=== PATIENT | male | born 1950 | race Caucasian/White ===

== ENCOUNTER 2019-02-02 08:58 | Emergency (ER) | payer BC, MEDICARE ==
[2019-02-02 09:05] VITALS: BP 143/75
[2019-02-02] MEDS ORDERED: OXYMETAZOLINE HCL 0.05% NASAL SPRAY 15 ML BOTTLE NASL ONE (09:44)
--- NOTE | 2019-02-02 09:46 | ER Document Report ---
ED Medical Screen (RME) - General Chief Complaint: Nose Bleed Stated Complaint: NOSE BLEED Time Seen by Provider: 02/02/19 09:37 Primary Care Provider: ROLAND COON [Primary Care Provider] - Follow up as needed Information source: Patient, Relative Notes: Patient presents with nosebleed that started at 7 AM this morning. Patient denies any trauma to the nose. Patient reports having a lot of blood on at home on his pillow. Patient has a history of hypertension CVA and does take Xarelto. Patient reports occasional bruising but no other abnormal bleeding. I have greeted and performed a rapid initial assessment of this patient. A comprehensive ED assessment and evaluation of the patient, analysis of test results and completion of the medical decision making process will be conducted by additional ED providers. 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 Denies: Hx Seizures GI Medical History: Denies: Hx Hepatitis, Hx Hiatal Hernia, Hx Ulcer Musculoskeltal Medical History: Denies Hx Arthritis Infectious Medical History: Denies: Hx Hepatitis Past Surgical History: Denies: Hx Open Heart Surgery, Hx Pacemaker - Immunizations Hx Diphtheria, Pertussis, Tetanus Vaccination: No Physical Exam - Vital signs Vitals: Temp Pulse Resp BP Pulse Ox 97.5 F 86 20 143/75 H 96 02/02/19 09:03 02/02/19 09:03 02/02/19 09:03 02/02/19 09:03 02/02/19 09:03 - General Notes: No active bleeding from nose, patient with some blood in the posterior pharynx Course - Vital Signs Vital signs: Temp Pulse Resp BP Pulse Ox 97.5 F 86 20 143/75 H 96 02/02/19 09:03 02/02/19 09:03 02/02/19 09:03 02/02/19 09:03 02/02/19 09:03 Doctor's Discharge - Discharge Referrals: ROLAND COON [Primary Care Provider] - Follow up as needed
[2019-02-02] MEDS ORDERED: LIDOCAINE 1%/EPINEPHRINE INJ 20 ML VIAL INJ ONE (10:05)
--- NOTE | 2019-02-04 10:36 | ER Document Report ---
Entered by JOANNE MORALES SCRIBE 02/02/19 1112 Acting as scribe for:RONDA CLARK MD ED General - General Chief Complaint: Nose Bleed Stated Complaint: NOSE BLEED Time Seen by Provider: 02/02/19 09:37 Primary Care Provider: SOPHY BOSCH MD [Primary Care Provider] - Follow up as needed Notes: Patient is a 68-year-old male presenting to the emergency department with a bloody nose. Patient states that it began this morning when he was trying to get some sleep. Patient states that he tried applying pressure, wiping the blood, with no relief. Patient has a history of stroke, he is taking the Xarelto at this time. Patient denies being on CPAP, or any breathing treatment at home, experiencing chest pain, or dizziness. - Related Data Allergies/Adverse Reactions: No Known Allergies Allergy (Verified 02/02/19 09:00) Past Medical History - General Information source: Patient, Relative - Social History Smoking Status: Current Some Day Smoker Cigarette use (# per day): Yes Chew tobacco use (# tins/day): No Frequency of alcohol use: Social Drug Abuse: None Family History: Reviewed & Not Pertinent Patient has suicidal ideation: No Patient has homicidal ideation: No - Past Medical History Cardiac Medical History: Reports: Hx Hypertension - MEDICATION Neurological Medical History: Reports: Hx Cerebrovascular Accident - RIDE SIDE /2012 - Immunizations Hx Diphtheria, Pertussis, Tetanus Vaccination: No Review of Systems - Review of Systems Constitutional: No symptoms reported EENT: See HPI, Nose discharge - Epistaxis Cardiovascular: No symptoms reported. denies: Chest pain, Dizziness Respiratory: No symptoms reported Gastrointestinal: No symptoms reported Genitourinary: No symptoms reported Male Genitourinary: No symptoms reported Musculoskeletal: No symptoms reported Skin: No symptoms reported Hematologic/Lymphatic: No symptoms reported Neurological/Psychological: No symptoms reported Physical Exam - Vital signs Vitals: Temp Pulse Resp BP Pulse Ox 97.5 F 86 20 143/75 H 96 02/02/19 09:03 02/02/19 09:03 02/02/19 09:03 02/02/19 09:03 02/02/19 09:03 - Notes Notes: Physical Exam: General: Alert, appears well. HEENT: Blood present in nares bilaterally. Atraumatic. PERRL. Extraocular movements intact. Oropharynx clear. Neck: Supple. Non-tender. Respiratory: No respiratory distress. Clear and equal breath sounds bilaterally. Cardiovascular: Regular rate and rhythm. Abdominal: Normal Inspection. Non-tender. No distension. Normal Bowel Sounds. Back: Non-tender. No deformity or step off. Extremities: Moves all four extremities. Upper extremities: Normal inspection. Normal ROM. Lower extremities: Normal inspection. No edema. Normal ROM. Neurological: Normal cognition. AAOx4. Normal speech. Psychological: Normal affect. Normal Mood. Skin: Warm. Dry. Normal color. Course - Re-evaluation Re-evalutation: 02/02/19 11:12 Patient knows no active bleeding during entire stay in the emergency department. Nasal speculum revealed no significant excoriations for cauterization at this time although there is a small excoriation medial aspect of right nares. Discussed with patient need to spray Afrin in his nose for an each nostril and then place gauze provided in clamp nose for 20 minutes if this recurs. Also discussed using saline mist 3 times a day [id number] from any pharmacy. Return precautions provided regarding continuation of epistaxis - Vital Signs Vital signs: Temp Pulse Resp BP Pulse Ox 97.5 F 86 20 143/75 H 96 02/02/19 09:03 02/02/19 09:03 02/02/19 09:03 02/02/19 09:03 02/02/19 09:03 Discharge - Discharge Clinical Impression: Epistaxis Condition: Good Disposition: HOME, SELF-CARE Additional Instructions: Please place 4 squirts of Afrin each nares and then placed nasal packing provided and clamp nose for 20 minutes if bleeding continues please return to the emergency department Please purchase nasal in place 2-3 squirts in each nostril 3 times daily Referrals: SOPHY BOSCH MD [Primary Care Provider] - Follow up as needed I personally performed the services described in the documentation, reviewed and edited the documentation which was dictated to the scribe in my presence, and it accurately records my words and actions.
== END 2019-02-02 11:30 | disposition home or self-care (01) ==
LOC: ER 08:58
DX: R04.0 Epistaxis (principal); F17.210 Nicotine dependence, cigarettes, uncomplicated; I69.351 Hemiplegia and hemiparesis following cerebral infarction affecting right dominant side; Z79.01 Long term (current) use of anticoagulants
CPT/HCPCS: 99283; J3490 ×2

== ENCOUNTER 2019-02-19 21:08 | Emergency (ER) | payer BC, MEDICARE ==
--- NOTE | 2019-02-19 21:14 | ER Document Report ---
ED General - General Stated Complaint: NOSE BLEED Time Seen by Provider: 02/19/19 21:14 Primary Care Provider: SOPHY BOSCH MD [Primary Care Provider] - Follow up as needed Mode of Arrival: Medic Information source: Patient Notes: Patient is a 5-year-old male being brought into the emergency department via EMS after falling. Patient reports he felt very dizzy and then fell striking his head onto pavement. He denies any loss of consciousness. He does report he takes Eliquis. He states he also immediately got a nosebleed. Patient does report a history of nosebleeds, states he was here a few weeks ago for one. He also reports a history of hypertension, seizures, atrial fibrillation. He reports he drinks daily. He denies any recent illness, states he has been feeling well prior to today. He denies any nausea, vomiting, diarrhea, fevers or chills. 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 Denies: Hx Seizures Renal/ Medical History: Denies: Hx Peritoneal Dialysis GI Medical History: Denies: Hx Hepatitis, Hx Hiatal Hernia, Hx Ulcer Musculoskeletal Medical History: Denies Hx Arthritis Infectious Medical History: Denies: Hx Hepatitis Past Surgical History: Denies: Hx Open Heart Surgery, Hx Pacemaker - Immunizations Hx Diphtheria, Pertussis, Tetanus Vaccination: No Review of Systems - Review of Systems Constitutional: No symptoms reported EENT: Other - Epistaxis Cardiovascular: Dizziness Respiratory: No symptoms reported Gastrointestinal: No symptoms reported Genitourinary: No symptoms reported Male Genitourinary: No symptoms reported Musculoskeletal: No symptoms reported Skin: No symptoms reported Hematologic/Lymphatic: No symptoms reported Neurological/Psychological: No symptoms reported Physical Exam - Vital signs Vitals: Temp Pulse Resp BP Pulse Ox 97.7 F 102 H 20 151/79 H 98 02/19/19 21:08 02/19/19 21:08 02/19/19 21:08 02/19/19 21:08 02/19/19 21:08 - Notes Notes: PHYSICAL EXAMINATION: GENERAL: Moderately ill appearing, unkempt alert, answering all questions. HEAD: Atraumatic, normocephalic. EYES: Pupils equal round and reactive to light, extraocular movements intact, sclera anicteric, conjunctiva are normal. ENT: Nares patent, oropharynx clear without exudates. Moist mucous membranes. No evidence of current epistaxis, dried blood noted in both nares. NECK: Normal range of motion, supple without lymphadenopathy LUNGS: Breath sounds clear to auscultation bilaterally and equal. No wheezes rales or rhonchi. HEART: Regular rate and rhythm without murmurs ABDOMEN: Soft, nontender, nondistended abdomen. No guarding, no rebound. No masses appreciated. Musculoskeletal: Normal range of motion, no pitting or edema. No cyanosis. NEUROLOGICAL: Cranial nerves grossly intact. Normal sensory, motor exams PSYCH: Normal mood, normal affect. SKIN: Warm, Dry, pale, normal turgor, no rashes or lesions noted. Course - Re-evaluation Re-evalutation: Nursing staff made me aware of a magnesium level of 0.7. Orders placed for magnesium replacement. 02/19/19 23:08 Patient had moderate amount of bloody emesis, likely secondary to resolved epistaxis. Attending physician Dr. Rico did come to the bedside to evaluate the patient. Patient is awake, alert, answering all questions appropriately, states that he feels a little better after vomiting. 02/20/19 01:37 Rectal exam was performed and is positive for blood. Transfer call initiated to [facility]. 02/20/19 01:51 Called to room as patient vomited another large volume of blood. Dr. Barahona present at bedside. Order placed for TXA and protonix. Awaiting call from [facility] for transfer. BP stable, mild tachycardia in the 110's. Repeat CBC pending. 02/20/19 02:02 Patient accepted for transfer to Dr. Nye, awaiting bed placement. 02/20/19 03:25 No change in patient's status over the last hour, nursing staff made [address] an NG tube, patient unable to tolerate. Patient remains mildly tachycardic with heart rate in the 110-115 range. His blood pressure is stable, currently 140/85. Pulse ox is 98% on room air. Patient is still alert, oriented. He has been medicated for nausea. He has no additional episodes of emesis. Transport will be here to pick him up in approximately 20 minutes. Patient is stable for transport at this time. He will be transported via air ambulance. Laboratory 02/19/19 02/19/19 02/19/19 21:17 21:17 21:17 WBC 8.2 RBC 3.83 L Hgb 13.3 L Hct 39.1 MCV 102 H MCH 34.6 H MCHC 33.9 RDW 14.8 H Plt Count 224 Lymph % (Auto) 9.2 L [place] % (Auto) 4.4 Eos % (Auto) 0.1 Baso % (Auto) 0.7 Absolute Neuts (auto) 7.0 Absolute Lymphs (auto) 0.8 Absolute Monos (auto) 0.4 Absolute Eos (auto) 0.0 Absolute Basos (auto) 0.1 Seg Neutrophils % 85.6 H PT INR Sodium 138.3 Potassium 3.7 Chloride 99 Carbon Dioxide 25 Anion Gap 14 BUN 31 H Creatinine 0.98 Est GFR ( Amer) > 60 Est GFR (MDRD) Non-Af > 60 Glucose 162 H Calcium 8.1 L Magnesium 0.7 L* Total Bilirubin 1.2 Direct Bilirubin 0.3 Neonat Total Bilirubin Not Reportable Neonat Direct Bilirubin Not Reportable Neonat Indirect Bili Not Reportable AST 25 ALT 15 Alkaline Phosphatase 58 Troponin I 0.017 Total Protein 6.1 L Albumin 3.5 Urine Color Urine Appearance Urine pH Ur Specific [place] Urine Protein Urine Glucose (UA) Urine Ketones Urine Blood Urine Nitrite Urine Bilirubin Urine Urobilinogen Ur Leukocyte Esterase Urine WBC (Auto) Urine RBC (Auto) Squamous Epi Cells Auto Urine Mucus (Auto) Urine Ascorbic Acid POC Stool Occult Blood Serum Alcohol 77 Blood Type Antibody Screen 02/19/19 02/19/19 02/19/19 21:17 21:17 22:35 WBC RBC Hgb Hct MCV MCH MCHC RDW Plt Count Lymph % (Auto) [place] % (Auto) Eos % (Auto) Baso % (Auto) Absolute Neuts (auto) Absolute Lymphs (auto) Absolute Monos (auto) Absolute Eos (auto) Absolute Basos (auto) Seg Neutrophils % PT 22.0 H INR 1.89 Sodium Potassium Chloride Carbon Dioxide Anion Gap BUN Creatinine Est GFR ( Amer) Est GFR (MDRD) Non-Af Glucose Calcium Magnesium Total Bilirubin Direct Bilirubin Neonat Total Bilirubin Neonat Direct Bilirubin Neonat Indirect Bili AST ALT Alkaline Phosphatase Troponin I Total Protein Albumin Urine Color YELLOW Urine Appearance CLEAR Urine pH 5.0 Ur Specific [place] 1.021 Urine Protein 100 H Urine Glucose (UA) NEGATIVE Urine Ketones 20 H Urine Blood SMALL H Urine Nitrite NEGATIVE Urine Bilirubin NEGATIVE Urine Urobilinogen 2.0 H Ur Leukocyte Esterase NEGATIVE Urine WBC (Auto) 1 Urine RBC (Auto) 2 Squamous Epi Cells Auto <1 Urine Mucus (Auto) RARE Urine Ascorbic Acid NEGATIVE POC Stool Occult Blood Serum Alcohol Blood Type A POSITIVE Antibody Screen NEGATIVE 02/20/19 02/20/19 01:23 01:50 WBC 10.9 H RBC 3.55 L Hgb 12.2 L Hct 35.5 L MCV 100 H MCH 34.5 H MCHC 34.5 RDW 14.6 H Plt Count 238 Lymph % (Auto) 9.8 L [place] % (Auto) 5.7 Eos % (Auto) 0.1 Baso % (Auto) 0.4 Absolute Neuts (auto) 9.2 H Absolute Lymphs (auto) 1.1 Absolute Monos (auto) 0.6 Absolute Eos (auto) 0.0 Absolute Basos (auto) 0.0 Seg Neutrophils % 84.0 H PT INR Sodium Potassium Chloride Carbon Dioxide Anion Gap BUN Creatinine Est GFR ( Amer) Est GFR (MDRD) Non-Af Glucose Calcium Magnesium Total Bilirubin Direct Bilirubin Neonat Total Bilirubin Neonat Direct Bilirubin Neonat Indirect Bili AST ALT Alkaline Phosphatase Troponin I Total Protein Albumin Urine Color Urine Appearance Urine pH Ur Specific [place] Urine Protein Urine Glucose (UA) Urine Ketones Urine Blood Urine Nitrite Urine Bilirubin Urine Urobilinogen Ur Leukocyte Esterase Urine WBC (Auto) Urine RBC (Auto) Squamous Epi Cells Auto Urine Mucus (Auto) Urine Ascorbic Acid POC Stool Occult Blood POSITIVE Serum Alcohol Blood Type Antibody Screen - Vital Signs Vital signs: Temp Pulse Resp BP Pulse Ox 97.8 F 110 H 19 138/89 H 99 02/20/19 03:41 02/19/19 23:21 02/20/19 03:41 02/20/19 03:41 02/20/19 03:41 - Laboratory Result Diagrams: 02/20/19 01:50 02/19/19 21:17 Laboratory results interpreted by me: 02/19/19 02/19/19 02/19/19 21:17 21:17 21:17 WBC RBC 3.83 L Hgb 13.3 L Hct MCV 102 H MCH 34.6 H RDW 14.8 H Lymph % (Auto) 9.2 L Absolute Neuts (auto) Seg Neutrophils % 85.6 H PT 22.0 H BUN 31 H Glucose 162 H Calcium 8.1 L Magnesium 0.7 L* Total Protein 6.1 L Urine Protein Urine Ketones Urine Blood Urine Urobilinogen 02/19/19 02/20/19 22:35 01:50 WBC 10.9 H RBC 3.55 L Hgb 12.2 L Hct 35.5 L MCV 100 H MCH 34.5 H RDW 14.6 H Lymph % (Auto) 9.8 L Absolute Neuts (auto) 9.2 H Seg Neutrophils % 84.0 H PT BUN Glucose Calcium Magnesium Total Protein Urine Protein 100 H Urine Ketones 20 H Urine Blood SMALL H Urine Urobilinogen 2.0 H Discharge - Discharge Clinical Impression: Gastrointestinal hemorrhage with hematemesis, Dizziness GI bleed Qualifiers: GI bleed type/associated pathology: melena Qualified Code(s): K92.1 - Melena Condition: Stable Disposition: [facility] Referrals: SOPHY BOSCH MD [Primary Care Provider] - Follow up as needed
[2019-02-19] MEDS ORDERED: ONDANSETRON HCL INJ/PF 4 MG/2 ML SDV IV ONE (21:30)
[2019-02-19 21:35] LABS: ABSOLUTE BASOPHILS # (AUTO) 0.1 10^3/uL (0.0-0.2); ABSOLUTE LYMPHOCYTES (AUTO) 0.8 10^3/uL (0.5-4.7); ABSOLUTE MONOCYTES (AUTO) 0.4 10^3/uL (0.1-1.4); BASOPHILS % (AUTO) 0.7 % (0-2); EOSINOPHILS % (AUTO) 0.1 % (0-6); HEMATOCRIT 39.1 % (37.9-51.0); HEMOGLOBIN 13.3 g/dL (13.5-17.0); LYMPHOCYTES % (AUTO) 9.2 % (13-45); MEAN CORPUSCULAR HEMOGLOBIN 34.6 pg (27.0-33.4); MEAN CORPUSCULAR HGB CONC 33.9 g/dL (32.0-36.0); MEAN CORPUSCULAR VOLUME 102 fl (80-97); MONOCYTES % (AUTO) 4.4 % (3-13); PLATELET COUNT 224 10^3/uL (150-450); RED BLOOD COUNT 3.83 10^6/uL (4.35-5.55); RED CELL DISTRIBUTION WIDTH 14.8 % (11.5-14.0); SEGMENTED NEUTROPHILS % (AUTO) 85.6 % (42-78); TOTAL CELLS COUNTED % (AUTO) 100 %; WHITE BLOOD COUNT 8.2 10^3/uL (4.0-10.5)
[2019-02-19 21:55] LABS: ALBUMIN 3.5 g/dL (3.5-5.0); ALCOHOL 77 mg/dL (NONE DETECTED); ALKALINE PHOSPHATASE 58 U/L (38-126); ANION GAP 14 (5-19); ASPARTATE AMINO TRANSFERASE 25 U/L (17-59); BILIRUBIN,DIRECT 0.3 mg/dL (0.0-0.4); BILIRUBIN,TOTAL 1.2 mg/dL (0.2-1.3); BLOOD UREA NITROGEN 31 mg/dL (7-20); CALCIUM 8.1 mg/dL (8.4-10.2); CARBON DIOXIDE 25 mmol/L (22-30); CHLORIDE 99 mmol/L (98-107); GLUCOSE 162 mg/dL (75-110); POTASSIUM 3.7 mmol/L (3.6-5.0); TOTAL PROTEIN 6.1 g/dL (6.3-8.2)
--- NOTE | 2019-02-19 22:38 | RADIOLOGY REPORT (SQ) ---
CT BRAIN AND CERVICAL SPINE EXAM DATE: 02/19/2019 9:23 PM CDT HISTORY: Trauma. COMPARISON: None. TECHNIQUE: CT scan of the brain and cervical spine without IV contrast. This exam was performed according to our departmental dose-optimization program, which includes automated exposure control, adjustment of the mA and/or kV according to patient size and/or use of iterative reconstruction technique. FINDINGS: BRAIN: Diffuse involutional changes are present. There are scattered areas of hypoattenuation within the periventricular white matter, which likely represent chronic microvascular ischemia. There is an old infarct in the left occipital lobe. No evidence of acute infarction, intracranial hemorrhage, extra-axial fluid collection, or midline shift. No air-fluid levels are seen in the paranasal sinuses to suggest acute sinusitis. No depressed skull fracture. CERVICAL SPINE: No acute cervical fracture or prevertebral soft tissue swelling. The cervical alignment is maintained. Multilevel degenerative disc disease along with facet arthropathy is present. There are multilevel disc bulges but without advanced canal stenosis identified. IMPRESSION: 1. No acute intracranial hemorrhage. 2. No acute fracture or subluxation of the cervical spine.
--- NOTE | 2019-02-19 22:41 | RADIOLOGY REPORT (SQ) ---
EXAM DESCRIPTION: XR CHEST 1 VIEW COMPLETED DATE/TME: 02/19/2019 21:23 CLINICAL HISTORY: 68 years, Male, cough COMPARISON: 03/16/2011 chest NUMBER OF VIEWS: 1 TECHNIQUE: Portable chest LIMITATIONS: None. FINDINGS: Cardiomegaly. Osteopenia. Atheromatous change thoracic aorta. Lungs are clear. No pneumothorax IMPRESSION: Cardiomegaly. The lungs are clear copyright 2011 [employer]- All Rights Reserved
[2019-02-19] MEDS: MAGNESIUM SULFATE/D5W 1 GM/100 ML RTUPB IV SCH (22:44)
[2019-02-19 23:05] LABS: APPEARANCE,URINE CLEAR; BILIRUBIN,URINE NEGATIVE (NEGATIVE); COLOR,URINE YELLOW; GLUCOSE, URINE NEGATIVE (NEGATIVE); KETONES,URINE 20 mg/dL (NEGATIVE); LEUKOCYTE ESTERASE,URINE NEGATIVE (NEGATIVE); NITRITE,URINE NEGATIVE (NEGATIVE); PROTEIN,URINE 100 mg/dL (NEGATIVE); URINE SPECIFIC GRAVITY 1.021
[2019-02-20] MEDS: MAGNESIUM SULFATE/D5W 1 GM/100 ML RTUPB IV SCH (00:07)
[2019-02-20 01:34] LABS: INTERNATIONAL RATION (INR) 1.89
[2019-02-20] MEDS ORDERED: TRANEXAMIC ACID INJ/PF 1,000 MG/10 ML SDV IV ONE (01:44)
[2019-02-20] MEDS ORDERED: PANTOPRAZOLE SODIUM 40 MG VIAL IV PRN (01:47)
[2019-02-20] MEDS ORDERED: NORMAL SALINE 1000 ML 1,000 ML IV ONE (01:50)
[2019-02-20 02:04] LABS: ABSOLUTE LYMPHOCYTES (AUTO) 1.1 10^3/uL (0.5-4.7); ABSOLUTE MONOCYTES (AUTO) 0.6 10^3/uL (0.1-1.4); ABSOLUTE NEUT (AUTO) 9.2 10^3/uL (1.7-8.2); BASOPHILS % (AUTO) 0.4 % (0-2); EOSINOPHILS % (AUTO) 0.1 % (0-6); HEMATOCRIT 35.5 % (37.9-51.0); HEMOGLOBIN 12.2 g/dL (13.5-17.0); LYMPHOCYTES % (AUTO) 9.8 % (13-45); MEAN CORPUSCULAR HEMOGLOBIN 34.5 pg (27.0-33.4); MEAN CORPUSCULAR HGB CONC 34.5 g/dL (32.0-36.0); MEAN CORPUSCULAR VOLUME 100 fl (80-97); MONOCYTES % (AUTO) 5.7 % (3-13); PLATELET COUNT 238 10^3/uL (150-450); RED BLOOD COUNT 3.55 10^6/uL (4.35-5.55); RED CELL DISTRIBUTION WIDTH 14.6 % (11.5-14.0); TOTAL CELLS COUNTED % (AUTO) 100 %; WHITE BLOOD COUNT 10.9 10^3/uL (4.0-10.5)
[2019-02-20] MEDS ORDERED: PANTOPRAZOLE SODIUM 40 MG VIAL IV ONE (02:29)
[2019-02-20] MEDS ORDERED: ONDANSETRON HCL INJ/PF 4 MG/2 ML SDV IV ONE (02:51)
[2019-02-20] MEDS ORDERED: ONDANSETRON HCL INJ/PF 4 MG/2 ML SDV ONE (02:51)
[2019-02-20 03:54] VITALS: BP 138/89
--- NOTE | 2019-02-20 23:19 | EKG REPORT ---
SEVERITY:- ABNORMAL ECG - ATRIAL FIBRILLATION PROBABLE POSTERIOR INFARCT PROLONGED QT INTERVAL : Confirmed by: Gregg Ríos 20-Feb-2019 23:18:59
--- NOTE | 2019-02-20 23:20 | EKG REPORT ---
SEVERITY:- ABNORMAL ECG - ATRIAL FIBRILLATION PROBABLE POSTERIOR INFARCT PROLONGED QT INTERVAL : Confirmed by: Gregg Ríos 20-Feb-2019 23:19:11
== END 2019-02-20 04:05 | disposition short-term general hospital (02) ==
LOC: ER 21:08
DX: K92.0 Hematemesis (principal); K92.1 Melena; R42 Dizziness and giddiness; R04.0 Epistaxis; F17.200 Nicotine dependence, unspecified, uncomplicated; Z79.899 Other long term (current) drug therapy; I48.91 Unspecified atrial fibrillation; I10 Essential (primary) hypertension; Z79.01 Long term (current) use of anticoagulants
CPT/HCPCS: 93005; 86900; 86901; 36415; 80177; 86850; 80307; 83735; 85025; 85610; 80053; 81001; 84484; 71045; 70450; 72125; 93010; J3475 ×2; C9113; J2405 ×2; J7030; J3490; 96365; 96366; 96367; 96375; 99284; S0164